=== PATIENT | male | born 1980 | race Caucasian/White ===

== ENCOUNTER 2016-10-10 20:25 | Emergency (ER) | payer OTHER ==
[~2016-10-10] VITALS: Ht 177.8 cm; Wt 104.0 kg
[~2016-10-10 20:25] MED LIST: ACETAMINOPHEN-1 EAC1; ALBUTEROL SULF8.5 GM IH; AMOXICILLIN500 MG PO; AUGMENTIN875 MG PO; CLARITIN-D 121 EACH PO; CYCLOBENZAPRINE10 MG PO; DOXYCYCLINE HY100 M1 PO; FLEXERIL10 MG PO; IBUPROFEN600 MG PO; IBUPROFEN800 MG PO; KEFLEX500 MG PO; LITHIUM CARBON300 MG PO; MOTRIN600 MG PO; OMEPRAZOLE20 MG PO; OXYCODONE-APAP1 EACH; PEN-VEE K,VEET500 MG; PHENERGAN-CODE120 ML PO; PREDNISONE10 MG PO; PREDNISONE20 MG PO; TEGRETOL100 MG PO; TEGRETOL200 MG PO; TESSALON PERLE100 MG PO; TRAMADOL HCL50 MG; TRAZODONE HCL100 MG PO; TRAZODONE PO; ULTRAM50 MG PO; ZOLOFT100 MG PO
[2016-10-10 20:52] VITALS: BP 120/76
[2016-10-10] MEDS ORDERED: ROBAXIN750 MG PO (22:34)
[2016-10-10] MEDS ORDERED: ULTRAM50 MG PO (22:34)
== END 2016-10-10 22:51 | disposition home or self-care (01) ==
LOC: EME 20:25
DX: M62.830 Muscle spasm of back (principal); Z88.8 Allergy status to other drugs, medicaments and biological substances; Z88.6 Allergy status to analgesic agent; F17.200 Nicotine dependence, unspecified, uncomplicated
CPT/HCPCS: 99281; 99283

== ENCOUNTER 2016-10-25 18:36 | Emergency (ER) | payer OTHER ==
[~2016-10-25] VITALS: Ht 177.8 cm; Wt 102.1 kg
[~2016-10-25 18:36] MED LIST changes: +ROBAXIN750 MG PO
[2016-10-25] MEDS ORDERED: PEN-VEE K,VEET500 MG PO (20:20)
[2016-10-25] MEDS ORDERED: FLEXERIL5 MG PO (20:20)
[2016-10-25] MEDS ORDERED: ULTRAM50 MG PO (20:43)
[2016-10-25 20:54] VITALS: BP 129/89
== END 2016-10-25 20:55 | disposition home or self-care (01) ==
LOC: EME 18:36
DX: M54.5 Low back pain (principal); K08.89 Other specified disorders of teeth and supporting structures; K02.9 Dental caries, unspecified; F17.200 Nicotine dependence, unspecified, uncomplicated
CPT/HCPCS: 99281; 99284

== ENCOUNTER 2016-11-09 12:02 | Emergency (ER) | payer OTHER ==
[~2016-11-09] VITALS: Ht 177.8 cm; Wt 104.6 kg
[~2016-11-09 12:02] MED LIST changes: +FLEXERIL5 MG PO; +PEN-VEE K,VEET500 MG PO
[2016-11-09 13:04] LABS: EOSINOPHIL COUNT 0.1 K/uL (0-0.3); HEMATOCRIT 43.9 % (38.0-50.0); IMMATURE GRANULOCYTE (%) 0.5 % (0.0-0.7); INSTRUMENT ABS NEUTROPHIL CT 4.6 K/uL; LYMPHOCYTE COUNT 1.2 K/uL (1.0-2.8); MCH 28.9 PG (29.0-34.0); MCHC 33.3 G/DL (30.0-36.0); MCV 86.9 FL (86-99); MEAN PLAT.VOLUME 11.7 uM^3 (9.0-12.4); MONOCYTE (%) 7.4 % (3-12); MONOCYTE COUNT 0.5 K/uL (0-0.8); NEUTROPHIL COUNT 4.6 K/uL (1.8-6.4); PLATELET COUNT 148 K/uL (156-360); RBC DIS.WIDTH-CV 12.7 % (11.8-14.6); RBC DIS.WIDTH-SD 40.1 % (39-53); RED BLOOD COUNT 5.05 M/uL (4.00-5.50); WHITE BLOOD COUNT 6.5 K/uL (4.1-10.2)
[2016-11-09 13:18] LABS: CHLORIDE 108 mEq/L (99-109); SODIUM 144 mEq/L (136-147)
[2016-11-09 13:20] LABS: GLUCOSE 112 mg/dL (70-99)
[2016-11-09 13:21] LABS: ANION GAP 8 MEQ/L (2-14)
[2016-11-09 13:24] LABS: GFR ESTIMATE (CALCULATED) > 59 mL/min/
[2016-11-09 13:25] LABS: UREA NITROGEN (BUN) 15 mg/dL (9-23)
[2016-11-09] MEDS ORDERED: PERIDEX1 ML MM (14:20)
[2016-11-09] MEDS ORDERED: AUGMENTIN875 MG PO (14:20)
[2016-11-09] MEDS ORDERED: OXYCODONE H5 MG/5 ML PO (14:20)
[2016-11-09 15:05] VITALS: BP 128/84
== END 2016-11-09 15:06 | disposition home or self-care (01) ==
LOC: EME 12:02
PROVIDERS: Emergency Medicine
PROC: 3E0234Z Introduction of Serum, Toxoid and Vaccine into Muscle, Percutaneous Approach (ICD-10-PCS; principal; 2016-11-09)
PROC: 0CQ1XZZ Repair Lower Lip, External Approach (ICD-10-PCS; principal; 2016-11-09)
DX: S01.511A Laceration without foreign body of lip, initial encounter (principal); W54.0XXA Bitten by dog, initial encounter; Y92.007 Garden or yard of unspecified non-institutional (private) residence as the place of occurrence of the external cause; Z23 Encounter for immunization; Z29.14 Encounter for prophylactic rabies immune globulin; F17.200 Nicotine dependence, unspecified, uncomplicated
CPT/HCPCS: 80048; 85025; 99281; 99285; J0295; J2250; J3010; J7040; J7050

== ENCOUNTER 2016-12-17 16:52 | Emergency (ER) | payer OTHER ==
[~2016-12-17] VITALS: Ht 175.3 cm; Wt 100.8 kg
[~2016-12-17 16:52] MED LIST changes: +OXYCODONE H5 MG/5 ML PO; +PERIDEX1 ML MM
[2016-12-17 17:08] VITALS: BP 144/81
[2016-12-17] MEDS ORDERED: MEDROL DOSEPAK4 MG PO (18:23)
[2016-12-17] MEDS ORDERED: BENADRYL50 MG PO (18:23)
== END 2016-12-17 18:45 | disposition home or self-care (01) ==
LOC: EME 16:52
DX: L23.7 Allergic contact dermatitis due to plants, except food (principal); F17.200 Nicotine dependence, unspecified, uncomplicated
CPT/HCPCS: 99281; 99283

== ENCOUNTER 2018-01-13 06:15 | Emergency (ER) | payer OTHER ==
[~2018-01-13] VITALS: Ht 177.8 cm; Wt 102.6 kg
[~2018-01-13 06:15] MED LIST changes: +BENADRYL50 MG PO; +MEDROL DOSEPAK4 MG PO
[2018-01-13 06:18] VITALS: BP 119/73
== END 2018-01-13 07:30 | disposition left against medical advice (07) ==
LOC: EME 06:15
DX: R05 Cough (principal); R11.10 Vomiting, unspecified; Z53.21 Procedure and treatment not carried out due to patient leaving prior to being seen by health care provider